=== PATIENT | female | born 1985 | race Caucasian/White ===

== ENCOUNTER 2022-09-10 12:42 | Emergency (ER) | payer SELFPAY ==
--- OUTSIDE RECORDS SUMMARY | 2022-09-10 12:45 | XMS REPORT | Continuity of Care Document ---
:1985 Author Organization [facility] t Address [address] [place] [id number] Care Team Providers Name Role Phone PCP, PATIENT DOES NOT HAVE A Primary Care Physician Unavaila ISABEL Mcallister Attending Clinician Unavailable ERIC HANSEN Attending Clinician Unavailable Eric Hansen MD Attending Clinician SABI RHODES Attending Clinician Unavailable Sabi Rhodes DO Attending Clinician ISABEL CEJA Admitting Clinician Unavailable Payers Payer Name Policy Type Policy Number Effective Date Expiration Date S sravani [id number] 2022 00:00:[address] [facility] [id number] 2022 [facility] 00:00:00 Problems Condition Condition Condition Status Onset Resolution Last Treating Co mments Source Name Details Category Date Date Treatment Clinician Date No known No known Disease Unive rs active active ity of problems problems [facility] Allergies, Adverse Reactions, Alerts Allergy Allergy Status Severity Reaction(s) Onset Inactive Treating Comm ents Source Name Type Date Date Clinician No Known DA Active [facility] s NO KNOWN Drug Active [facility] ALLERGIE Class ity of S [facility] Social History Social Habit Start Date Stop Date Quantity Comments Source Exposure to 2022-02-15 2022-02-25 Not sure [facility] SARS-CoV-2 (event) 00:00:00 07:57:00 Medica l Vahe Sex Assigned At [birth year] [facility] 00:00:00 00:00:00 Medical Branch Smoking Status Start Date Stop Date Source Tobacco smoking consumption [facility] Branch Medications Ordered Filled Start Stop Current Ordering Indication Dosage Frequency Signature Comments Components Source Medication Medication Date Date Medication? Clinician (SIG) Name Name NaCl 0.9% 2021-04 No 1000mL at 999 Uni vers (NS) bolus 04-27 mL/hr, ity of infusion 10:30: 11:34 1,000 mL, Freddy as 1,000 mL 00 :00 IV Medical Infusion, Branch ONCE, 1 dose, On 02/25/22 at 0430, LIANG ondansetron 2021-04 No 4mg 4 mg, Slow Univers (ZOFRAN 04-27 IV Push, ity of (PF)) 09:45: 09:46 ONCE, 1 [place] injection 4 00 :00 dose, On Medi dean mg [place] 02/25/22 at 0345, LIANG No known 2021-04 No No known Unive rs medications 04-27 medication it y of 09:37: s [place] 21 Medical Branch No known 2021-04 No No known Unive rs medications 04-27 medication it y of 03:13: s [place] 35 [facility] Vital Signs Vital Name Observation Time Observation Value Comments Source Height 2022-05-31 17:40:00 162.56 CM Weight 2022-05-31 17:40:00 63.5 KG Systolic blood 2022-02-25 14:01:00 155 mm[Hg] Univer sity of pressure [facility] Diastolic blood 2022-02-25 14:01:00 99 mm[Hg] Unive rsity of pressure [facility] Heart rate 2022-02-25 14:01:00 87 /min [facility] Body temperature 2022-02-25 14:01:00 36.5 [facility] Respiratory rate 2022-02-25 14:01:00 18 /min [facility] Body weight 2022-02-25 14:01:00 61.236 kg [facility] BMI 2022-02-25 14:01:00 23.17 kg/m2 [facility] Oxygen saturation in 2022-02-25 14:01:00 100 /min [facility] Arterial blood by [place] [facility] Pulse oximetry Branch Systolic blood 2022-02-25 11:00:00 123 mm[Hg] Univer sity of pressure [facility] Diastolic blood 2022-02-25 11:00:00 90 mm[Hg] [facility] Heart rate 2022-02-25 11:00:00 71 /min [facility] Respiratory rate 2022-02-25 11:00:00 16 /min [facility] Oxygen saturation in 2022-02-25 11:00:00 98 /min [facility] Arterial blood by [facility] Pulse oximetry [place] Body height 2022-02-25 09:23:00 162.6 cm [facility] Body weight 2022-02-25 09:23:00 61.236 kg [facility] BMI 2022-02-25 09:23:00 23.17 kg/m2 [facility] Body temperature 2022-02-25 09:04:00 37.06 Veronica [facility] Procedures Procedure Date / Time Performing Clinician Source Performed POCT TEST 2022-02-25 09:46:00 Sabi Rhodes [facility] MAGNESIUM 2022-02-25 09:33:00 Sabi Rhodes [facility] COMP. METABOLIC PANEL 2022-02-25 09:33:00 [id number] ETHANOL 2022-02-25 09:33:00 Sabi Rhodes [facility] CBC WITH DIFF 2022-02-25 09:33:00 Sabi Rhodes [facility] URINALYSIS 2022-02-25 09:33:00 Sabi Rhodes [facility] URINE DRUG (IMMUNOASSAY) 2022-02-25 09:33:00 Sabi Rhodes [facility] DRUG Medical [facility] SCREEN W/O REFLEX Encounters Start End Encounter Admission Attending Care Care Encounter Source Date/Time Date/Time Type Type Clinicians Facility Department ID 2022-05-31 2022-05-31 Outpatient E [facility], [facility] [id number] [address] 17:37:00 19:40:00 ISABEL [facility] 2022-02-25 2022-02-25 Emergency X TYRONE, [facility] ERT [id number] Univers 07:55:00 10:01:00 ERIC lima [facility] 2022-02-25 2022-02-25 Emergency Tyrone, [facility] [id number] Univers 07:55:00 10:01:00 Eric MAYA [id number] [facility] [id number] [facility] [id number] [address] 2022-02-25 2022-02-25 Emergency X [facility] ERT [id number] Univers 03:08:00 05:34:00 SABI lima [facility] 2022-02-25 2022-02-25 Emergency [facility] [id number] Univers 03:08:00 05:34:00 Sabi MAYA [id number] [facility] [id number] [facility] [id number] [address] Results Test Description Test Time Test Comments Results Result Comments Source URINALYSIS W/O MICROSCOPICOW 2022-05-31 19:17:00 Test Item Value Reference Range Interpretation Comme nts COLOR (test code = COLU) Brown YELLOW A CLARITY (test code = CLA) Cloudy CLEAR GLUCOSE UR (test code = UA Negative NEGATIVE GLUCOSE) BILI UR (test code = BILE) Negative NEGATIVE KETONES UR (test code = SHARA) 1+ NEGATIVE A SP GRAVITY (test code = SPGR) >=1.030 1.005-1.030 PH UR (test code = PH) 6.0 4.5-8.0 PROTEIN UR (test code = PU) 1+ NEGATIVE A NITRITE UR (test code = NITRITE) Negative NEGATIVE UROBIL UR (test code = GUROQ) 0.2 E.U./dL UROBIL UR (test code = GUROQC) UROBILINOGEN REFERENCE RANGE 0.2 - 1.0 EU/dL BLOOD UR (test code = UA BLOOD) 3+ NEGATIVE A LEUK ES UR (test code = LEUK) Negative NEGATIVE DRUGS OF ABUSE*OW*2022-05-31 19:08:00URINE DRUG SCREEN This is an unconfirmed screening result and should not be used for non-medical purposes GENERAL CHEMISTRY 13 *OW* [id number] 18:01:00 Test Item Value Reference Range Interpretation Comments GLUCOSE (test code = GGUL) 88 mg/dL 73-118 BUN (test code = GBUN) 8 mg/dL 7-22 CREATININE (test code = GCRE) 0.7 mg/dL 0.6-1.2 URIC ACID (test code = GUA) 3.4 mg/dL 2.2-6.6 CALCIUM (test code = GCL+) 8.6 mg/dL 8.0-10.3 ALBUMIN (test code = GALB) 3.3 g/dL 3.5-5.5 L PROTEIN (test code = GTP) 6.1 g/dL 6.4-8.1 L ALT (test code = GALT) 14 U/L 10-47 AST (test code = JOVANNI) 26 U/L 11-38 ALK PHOS (test code = GALP) 58 U/L 42-141 BILI TOTAL (test code = GTBIL) 0.6 mg/dL 0.2-1.6 GGT (test code = GGGT) 20 U/L 5-65 AMYLASE (test code = GAMY) 14 U/L 14-97 CBC (INCLUDES AUTOMATED DIFFERENTIAL) *2022-05-31 17:59:00 Test Item Value Reference Range Interpretation Comments WBC (test code = WBC) 6.2 10\\S\\3/uL 4.5-11.0 RBC (test code = RBC) 4.28 10\\S\\6/uL 4.30-5.70 L HGB (test code = HBG) 13.0 g/dL 12.0-15.5 HCT (test code = HCT) 39.9 % 35.0-44.0 MCV (test code = MCV) 93.3 fL 81.0-99.0 MCH (test code = MCH) 30.4 pg 27.0-31.0 MCHC (test code = MCHC) 32.6 g/dL 32.0-36.0 RDW (test code = RDW) 11.4 % 11.5-14.5 L PLT (test code = PLT) 248 10\\S\\3/uL 130-400 MPV (test code = OMPV) 7.4 fL 6.2-10.2 NEUTROP # (test code = NE#) 4.3 10\\S\\3/uL 1.6-8.0 LYMPH # (test code = LY#) 1.4 10\\S\\3/uL 1.1-3.5 MID # (test code = GMID#) 0.5 10\\S\\3/uL 0.0-1.1 GRAN % (test code = GRA%) 69.2 % 35.0-73.0 LYMPH % (test code = GLY%) 22.9 % 20.0-55.0 MID % (test code = GMID%) 7.9 % 0.0-10.0 [id number] 10:35:01ALCOHOL<10mg/dL02/25/2022 4:35 AM [facility]10 Yilvykzw78-275 Toxic>100 Depression of ADOPTION COORDINATOR>400 Fatalities ReportedUnVal[facility] HarlingenCOMP. METABOLIC PANEL ([id number])2022-02-25 10:34:56 Test Item Value Reference Range Interpretation Comments NA (test code = 138 mmol/L 135-145 4590021854) K (test code = 3.6 mmol/L 3.5-5.0 5818643695) CL (test code = 102 mmol/L 98-108 0313851540) CO2 TOTAL (test code = 27 mmol/L 23-31 1490565404) AGAP (test code = 2-16 8275203739) BUN (test code = 14 mg/dL 7-23 9098114426) GLUCOSE (test code = 89 mg/dL 70-110 1176608119) CREATININE (test code = 0.73 mg/dL 0.50-1.04 2877725308) TOTAL BILI (test code = 0.1-1.1 L 4825911389) CALCIUM (test code = 9.2 mg/dL 8.6-10.6 6686196632) T PROTEIN (test code = 6.9 g/dL 6.3-8.2 3776605649) ALBUMIN (test code = 4.5 g/dL 3.5-5.0 2788651238) ALK PHOS (test code = 64 U/L 34-122 7394101221) ALTv (test code = 14 U/L 5-35 2-6) AST(SGOT) (test code = 18 U/L 13-40 9908682269) eGFR (test code = mL/min/1.73m2 8946800296) SAMANTHA (test code = SAMANTHA) Association of Glomerular Filtration Rate (GFR) and Staging of Kidney Disease* + --+ --+ ------+| GFR (mL/min/1.73 m2) ?| With Kidney Damage ?| ?Without Kidney Damage+ --------+ --------+ +| ?>90 ?| ?Stage one ?| ? Normal ?+ ---+ ---+ -------+| ?60-89 ?| ?Stage two ?| ? Decreased GFR ? + --+ --+ ------+| ?30-59 ?| ?Stage three ?| ? Stage three ? + --+ --+ ------+| ?15-29 ?| ?Stage four ? | ? Stage four ?+ ---+ ---+ -------+| ?<15 (or dialysis) ? ?| ?Stage five ? | ? Stage five ?+ ---+ ---+ -------+ *Each stage assumes the associated GFR level has been in effect for at least three months. ?Stages 1 to 5, with or without kidney disease, indicate chronic kidney disease. Notes: Determination of stages one and two (with eGFR >59mL/min/1.73 m2) requires estimation of kidney damage for at least three months as defined by structural or functional abnormalities of the kidney, manifested by either:Pathological abnormalities or Markers of kidney damage (including abnormalities in the composition of the blood or urine or abnormalities in imaging tests). Lab Interpretation Abnormal (test code = 41664-3) [facility] 10:28:19 Test Item Value Reference Range Interpretation Comments MAGNESIUM (test code = 4380534818) 2.1 mg/dL 1.7-2.4 Lab Interpretation (test code = Normal 97549-4) [facility]uda[facility] WITH [id number] 10:05:43 Test Item Value Reference Range Interpretation Comments WBC (test code = See_Comment [Automated 6690-2) message] The sy stem which generated this result transmitted reference range : 4.30 - 11.10 10*3/?L. The reference range was not used to interpret this result as normal/abnormal . RBC (test code = See_Comment [Automated 789-8) message] The sy stem which generated this result transmitted reference range : 3.93 - 5.25 10*6/?L. The reference range was not used to interpret this result as normal/abnormal . HGB (test code = 13.9 g/dL 11.6-15.0 718-7) HCT (test code = 40.8 % 35.7-45.2 4544-3) MCV (test code = 85.9 fL 80.6-95.5 787-2) MCH (test code = 29.3 pg 25.9-32.8 785-6) MCHC (test code = 34.1 g/dL 31.6-35.1 786-4) RDW-SD (test code = 37.6 fL 39.0-49.9 L 19506-4) RDW-CV (test code = 11.9 % 12.0-15.5 L 788-0) PLT (test code = See_Comment [Automated 777-3) message] The sy stem which generated this result transmitted reference range : 166 - 358 10*3/ ?L. The reference r corey was not used to interpret this result as normal/abnormal . MPV (test code = 9.8 fL 9.5-12.9 14217-9) NRBC/100 WBC (test See_Comment [Automat ed code = 9382161636) message] The system which generated this result transmitted reference range : 0.0 - 10.0 /100 WBCs. The refer ence range was not u sed to interpret th is result as normal/abnormal . NRBC x10^3 (test code See_Comment [Auto mated = 9440110579) message] The s ystem which generated this result transmitted reference range : 10*3/?L. The reference range was not used to interpret this result as normal/abnormal . GRAN MAT (NEUT) % 58.6 % (test code = 770-8) IMM GRAN % (test code 0.40 % = 5189640006) LYMPH % (test code = 30.8 % 736-9) MONO % (test code = 8.2 % 5905-5) EOS % (test code = 1.3 % 713-8) BASO % (test code = 0.7 % 706-2) GRAN MAT x10^3(ANC) 4.46 10*3/uL 1.88-7.09 (test code = 7084745883) IMM GRAN x10^3 (test 0.03 10*3/uL 0.00-0.06 code = 2183007605) LYMPH x10^3 (test code 2.34 10*3/uL 1.32-3.29 = 731-0) MONO x10^3 (test code 0.62 10*3/uL 0.33-0.92 = 742-7) EOS x10^3 (test code = 0.10 10*3/uL 0.03-0.39 711-2) BASO x10^3 (test code 0.05 10*3/uL 0.01-0.07 = 704-7) Lab Interpretation Abnormal (test code = 93503-2) [facility]udaPO[facility] [id number] 09:46:00 Test Item Value Reference Range Interpretation Comments POCT PREG (test code = 1605) negative Lab Interpretation (test code = Normal 72652-9) [facility]"
[2022-09-10 13:15] LABS: Specific Gravity 1.024 (1.005-1.030)
--- NOTE | 2022-09-10 13:29 | RAD REPORT ---
EXAM DESCRIPTION: CT - Head C Spine Mpr Wo Con - 09/10/2022 1:12 pm CLINICAL HISTORY: Head and neck injury status post fall. Head and neck pain COMPARISON: 2014 TECHNIQUE: Computed axial tomography of the head and cervical spine was obtained. Sagittal and coronal reconstruction was performed. All CT scans are performed using dose optimization technique as appropriate and may include automated exposure control or mA/KV adjustment according to patient size. FINDINGS: An intracranial bleed is not seen. The ventricles are normal in caliber. No significant hypodensity within the brain. An extra-axial fluid collection is not noted. Fluid within the visualized sinuses and mastoids is not seen A cervical fracture is not visualized. No dislocation is noted. IMPRESSION: No acute intracranial abnormality is seen. A cervical fracture is not visualized. If the patient continues to have symptoms to suggest intracranial /spinal cord pathology then MRI wou ld be recommended
[2022-09-10] MEDS ORDERED: ONDANSETRON 4 MG (ODT) TAB ONE (14:08)
--- NOTE | 2022-09-10 14:08 | EDPHYS ---
Physician Documentation [facility] Name: Timothy Hayward Age: 36 yrs Sex: Female : 1985 Arrival Date: 09/10/2022 Time: 12:42 Bed 23 Private MD: ED Physician Dany Bustillos HPI: 09/10 13:06 This 36 yrs old Female presents to ER via [employer] with complaints of Nausea, ms3 Medical Clearance. 13:06 36-year-old female with past medical history of asthma and PTSD presents via [facility] ms3 for nausea and headache that began yesterday after hitting her head on a copy cutter car. Patient states she did have loss of consciousness at that time. Patient states her head pain is a 5/10 described as throbbing. Patient denies alleviating or inciting factors. Historical: - Allergies: 12:51 Morphine; ss - Home Meds: 12:51 suboxone [Active]; ss - PMHx: 12:51 Asthma; PTSD; ss - PSHx: 12:51 None; ss - Immunization history:: Client reports having NOT received the Covid vaccine. - Social history:: Smoking status: Patient reports the use of cigarette tobacco products, denies chronic smoking, but will smoke occasionally, Patient uses street drugs, marijuana. ROS: 13:06 Constitutional: Negative for fever, and chills. Neck: Negative for injury, pain, and ms3 swelling, Cardiovascular: Negative for chest pain, and palpitations. Respiratory: Negative for shortness of breath, cough, wheezing, and pleuritic chest pain, Abdomen/GI: Negative for abdominal pain, nausea, vomiting, diarrhea, and constipation, MS/Extremity: Negative for injury and deformity, Skin: Negative for injury, rash, and discoloration. 13:06 Neuro: Positive for headache. 13:06 All other systems are negative. Exam: 13:06 Constitutional: This is a well developed, well nourished patient who is awake, alert, ms3 and in no acute distress. Head/Face: Normocephalic, atraumatic. Neck: Trachea midline, no cervical lymphadenopathy. Supple, full range of motion without nuchal rigidity, or vertebral point tenderness. No Meningismus. Chest/axilla: Normal chest wall appearance and motion. Nontender with no deformity. Cardiovascular: Regular rate and rhythm with a normal S1 and S2. No gallops, murmurs, or rubs. Normal PMI, no JVD. No pulse deficits. Respiratory: Lungs have equal breath sounds bilaterally, clear to auscultation and percussion. No rales, rhonchi or wheezes noted. No increased work of breathing, no retractions or nasal flaring. Abdomen/GI: Soft, non-tender, with normal bowel sounds. No distension or tympany. No guarding or rebound. No evidence of tenderness throughout. Skin: Warm, dry with normal turgor. Normal color with no rashes, no lesions, and no evidence of cellulitis. MS/ Extremity: Pulses equal, no cyanosis. Neurovascular intact. Full, normal range of motion. Neuro: Awake and alert, GCS 15, oriented to person, place, time, and situation. Cranial nerves II-XII grossly intact. Motor strength 5/5 in all extremities. Sensory grossly intact. Cerebellar exam normal. Normal gait. Vital Signs: 12:49 BP 101 / 88; Pulse 88; Resp 15; Temp 98.8(O); Pulse Ox 98% on R/A; Weight 63.5 kg; ss Height 5 ft. 4 in. ; Pain 4/10; 12:49 Body Mass Index 24.03 (63.50 kg, 162.56 cm) ss 12:49 Pain Scale: Adult ss MDM: 12:55 Patient medically screened. ms3 13:06 Differential diagnosis: ICH vs Head Injury vs . ms3 14:09 Data reviewed: vital signs, nurses notes, and as a result, I will discharge patient. I ms3 considered the following discharge prescriptions or medication management in the emergency department Medications were administered in the Emergency Department. See MAR. Care significantly affected by the following Social Determinants of Health: Poor access to healthcare and/or lack of insurance. Counseling: I had a detailed discussion with the patient and/or guardian regarding: the historical points, exam findings, and any diagnostic results supporting the discharge/admit diagnosis, lab results, radiology results, the need for outpatient follow up, to return to the emergency department if symptoms worsen or persist or if there are any questions or concerns that arise at home. 09/10 12:56 Order name: Test, Urine; Complete Time: 13:17 ms3 09/10 12:56 Order name: CT Head C Spine; Complete Time: 13:40 ms3 Administered Medications: 14:01 Drug: Ondansetron PO 4 mg Route: PO; mb9 Disposition Summary: 09/10/22 14:07 Discharge Ordered Location: Home ms3 Condition: Stable ms3 Diagnosis - Headache ms3 - Nausea ms3 Followup: ms3 - With: Dino Voss DO - When: 2 - 3 days - Reason: Recheck today's complaints Discharge Instructions: - Discharge Summary Sheet ms3 - General Headache Without Cause ms3 - Nausea, Adult ms3 Forms: - Medication Reconciliation Form ms3 - Thank You Letter ms3 - Antibiotic Education ms3 - Prescription Opioid Use ms3 Prescriptions: - ondansetron 4 mg Oral Tablet,disintegrating - take 1 tablet by ORAL route every 8 hours for 4 days; 12 tablet; Refills: 0, ms3 Product Selection Permitted Signatures: Dispatcher [employer] Florinda Rice RN RN ss Sims, Marcus, DO DO ms3 Jen Oconnor RN RN mb9
--- NOTE | 2022-09-10 14:08 | ER ---
Nurse's Notes [facility] Name: Timothy Hayward Age: 36 yrs Sex: Female : 1985 Arrival Date: 09/10/2022 Time: 12:42 Bed 23 Private MD: Diagnosis: Headache;Nausea Presentation: 09/10 12:49 Chief complaint: Patient states: nausea since yesterday. In PD custody. PD requesting medical clearance. Coronavirus screen: Client denies travel out of the [place] in the last 14 days. Ebola Screen: Patient denies exposure to infectious person. Patient denies travel to an Ebola-affected area in the 21 days before illness onset. Initial Sepsis Screen: Does the patient meet any 2 criteria? No. Patient's initial sepsis screen is negative. Does the patient have a suspected source of infection? No. Patient's initial sepsis screen is negative. Risk Assessment: Do you want to hurt yourself or someone else? Patient reports no desire to harm self or others. Onset of symptoms was September 09, 2022. 12:49 [facility] 12[facility] Acuity: RADHA 3 ss Historical: - Allergies: 12:51 Morphine; ss - Home Meds: 12:51 suboxone [Active]; ss - PMHx: 12:51 Asthma; PTSD; ss - PSHx: 12:51 None; ss - Immunization history:: Client reports having NOT received the Covid vaccine. - Social history:: Smoking status: Patient reports the use of cigarette tobacco products, denies chronic smoking, but will smoke occasionally, Patient uses street drugs, marijuana. Screenin:52 [facility] ED Fall Risk Assessment (Adult) History of falling in the last 3 months, ss including since admission Yes- single mechanical fall (1 pt). Abuse screen: Denies threats or abuse. Denies injuries from another. Nutritional screening: No deficits noted. Tuberculosis screening: Never had TB. Assessment: 12:52 General: Appears uncomfortable, slender, Behavior is cooperative. Pain: Complains of ss pain in left cheek Pain currently is 4 out of 10 on a pain scale. Quality of pain is described as Pt reports she fractured her orbital socket 3 weeks ago. Neuro: Level of Consciousness is awake, alert, obeys commands, Oriented to person, place, time, situation. Respiratory: Airway is patent Respiratory effort is even, unlabored, Respiratory pattern is regular, symmetrical. GI: Abdomen is non-distended, Reports nausea, since yesterday. Derm: Skin is intact, is healthy with good turgor, Skin is pink, warm \T\ dry. normal. Vital Signs: 12:49 BP 101 / 88; Pulse 88; Resp 15; Temp 98.8(O); Pulse Ox 98% on R/A; Weight 63.5 kg; ss Height 5 ft. 4 in. ; Pain 4/10; 12:49 Body Mass Index 24.03 (63.50 kg, 162.56 cm) ss 12:49 Pain Scale: Adult ss ED Course: 12:46 Patient arrived in ED. bd 12:50 Dany Bustillos DO is Attending Physician. ms3 12:51 Triage completed. ss 12:51 Arm band placed on right wrist. ss 12:52 Patient has correct armband on for positive identification. Pt remains in forensic ss cuffs placed by PD prior to arrival. [employer] officer remains at bedside. 13:14 CT Head C Spine In Process Unspecified. EDMS 14:01 No provider procedures requiring assistance completed. Patient did not have IV access mb9 during this emergency room visit. 14:07 Dino Voss DO is Referral Physician. ms3 14:28 Florinda Culp, JAYLA is Primary Nurse. ss Administered Medications: 14:01 Drug: Ondansetron PO 4 mg Route: PO; mb9 Medication: 12:52 VIS not applicable for this client. Outcome: 14:07 Discharge ordered by MD. ms3 14:30 Discharged to Law Enforcement 14:30 Condition: good 14:30 Discharge instructions given to patient, police, Instructed on discharge instructions, follow up and referral plans. medication usage, Demonstrated understanding of instructions, follow-up care, medications, Prescriptions given X 1. 14:39 Patient left the ED. mb9 Signatures: Dispatcher [employer] EDMS Tayla Minor Shelby, RN RN ss Dany Bustillos DO DO ms3 Jen Oconnor RN RN mb9
[2022-09-10 14:54] VITALS: BP 101/88; TEMP 98.8; O2SAT 98
== END 2022-09-10 14:39 | disposition home or self-care (01) ==
LOC: ER 12:42
DX: R51.9 Headache, unspecified (principal); R11.0 Nausea
CPT/HCPCS: 70450; 72125; 81025; 99283; Q0162

== ENCOUNTER 2024-01-18 10:53 | Emergency (ER) | payer SELFPAY ==
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
[2024-01-18 11:38] LABS: Absolute Eosinophils 0.1 K/uL (0-0.5); Absolute Lymphocytes (CBC) 1.3 K/uL (0.7-4.9); Absolute Monocytes 0.4 K/uL (0.1-1.3); Basophils % 0.3 % (0-1.3); Eosinophils % 0.8 % (0-4.4); Hematocrit 39.4 % (36.0-45.0); Hemoglobin 13.2 g/dL (12.0-15.0); Lymphocytes % 19.2 % (15.3-44.8); MCHC 33.6 g/dL (32.0-36.0); MCV 89.4 fL (80-100); Monocytes % 5.7 % (3.3-12.3); Platelets 241 thou/uL (152-406); RBC Red Blood Cell Count 4.41 M/uL (3.86-4.86); Red Cell Distribution Width 12.8 % (12.1-15.2)
[2024-01-18] MEDS ORDERED: NA CHLORIDE 0.9% 1,000 ML ONE (11:39)
[2024-01-18] MEDS ORDERED: FOLIC ACID 5 MG/ML VIAL ONE (11:39)
[2024-01-18 11:43] LABS: PT Prothrombin Time 11.5 SECONDS (9.4-12.5); Protime INR 1.03
[2024-01-18 11:57] LABS: ALT/SGPT 18 U/L (13-56); AST/SGOT 15 U/L (15-37); Albumin/Globulin Ratio 1.2 (1.1-1.8); Alkaline Phosphatase 59 U/L (45-117); Anion Gap 6.7 mEq/L (5.0-15.0); BUN Blood Urea Nitrogen 6 mg/dL (7-18); Bicarbonate 26 mEq/L (21-32); Bilirubin Total 0.5 mg/dL (0.2-1.0); Globulin 3.3 g/dL (2.3-3.5); Glomerular Filtration Rate 115 ml/min (=/>90); Glucose Level 82 mg/dL (74-106); Magnesium 2.4 mg/dL (1.6-2.4); NT PRO-BNP 47 pg/mL (<125); Potassium 3.7 mEq/L (3.5-5.1); Protein, Total 7.3 g/dL (6.4-8.2); Sodium Level 135 mEq/L (136-145)
[2024-01-18 11:58] LABS: Bilirubin Direct < 0.2 mg/dL (0-0.2); Bilirubin Indirect, Calculated 0.3 mg/dL (0.2-0.8); C-Reactive Protein < 2.90 mg/L (<3.00); Troponin High Sensitivity < 3.0 pg/mL (<58.9)
--- NOTE | 2024-01-18 12:01 | RAD REPORT ---
Procedure: Chest Single View HISTORY: Cough COMPARISON: 2008 FINDINGS: The lungs appear clear of acute infiltrate. No significant pleural effusion noted. The heart is normal size. IMPRESSION: No acute abnormality is displayed.
[2024-01-18 12:06] LABS: Specific Gravity 1.027 (1.005-1.030); Sqamous Epithelial <5 /HPF (None Seen); Urine Bacteria None Seen /HPF (<20); Urine Bilirubin NEGATIVE (Negative); Urine Blood Negative (Negative); Urine Clarity Turbid (Clear); Urine Color Yellow (Yellow); Urine Culture Reflex Order NOT NEEDED; Urine Glucose NEGATIVE (Negative); Urine Ketones 1+ (Negative); Urine Microscopic Reflex YN ORDER UMIC; Urine Mucus 3+ /HPF (None Seen); Urine Nitrite NEGATIVE (Negative); Urine Protein TRACE (Negative); Urine RBC <5 /HPF (None Seen); Urine Urobilinogen Normal (Normal); Urine WBC <5 /HPF (<5); Urine pH 5.5 (5.0-7.0)
[2024-01-18 12:18] LABS: Barbiturates NEGATIVE (NEGATIVE); Benzodiazepines NEGATIVE (NEGATIVE); Cocaine NEGATIVE (NEGATIVE); METHAMPHETAM POSITIVE (NEGATIVE); Methadone NEGATIVE (NEGATIVE); Opiates POSITIVE (NEGATIVE); Phencyclidine NEGATIVE (NEGATIVE); THC Cannibis POSITIVE (NEGATIVE)
[2024-01-18] MEDS ORDERED: METHYLPREDNISOLONE 125 MG INJ ONE (12:23)
[2024-01-18] MEDS ORDERED: FAMOTIDINE 20 MG/2 ML VIAL IV ONE (12:24)
[2024-01-18] MEDS ORDERED: DIPHENHYDRAMINE 50 MG/ML VIAL ONE (12:24)
--- NOTE | 2024-01-18 12:26 | RAD REPORT ---
EXAM: CT brain without contrast HISTORY: TIA COMPARISON: 2014 TECHNIQUE: Multiple contiguous axial images were obtained and a CT of the brain without contrast.. Sagittal and coronal reconstruction performed. Automated exposure control, adjustment of the mA and/or kV according to patient size, and/or iterative reconstruction. Unless otherwise specified, incidental f indings do not require dedicated imaging follow-u FINDINGS: An intracranial bleed is not seen Ventricles are normal caliber No extra-axial fluid collection noted No significant hypodensity within the brain. Mild cerebellar tonsillar ectopia No fluid within the visualized sinuses or mastoids noted. Mucous retention cyst right maxillary sinus IMPRESSION: No acute intracranial abnormality noted. If the patient's symptoms persist MRI of the brain would be recommended.
[2024-01-18] MEDS ORDERED: droPERidol 5 MG/2 ML VIAL ONE (13:06)
--- NOTE | 2024-01-18 13:16 | RAD REPORT ---
EXAMINATION: CTA HEAD CLINICAL INDICATION: TIA TECHNIQUE: Axial CT images were obtained through the head after 100 cc Isovue-370 intravenous contras t utilizing angiographic protocol with 3D post-processing (maximum intensity projection images, volume rendered images and/or shaded surface rendered images). One or more of the following dose red uction techniques were used: Automated exposure control, adjustment of the mA and/or kV according to patient size, and/or iterative reconstruction. Unless otherwise specified, incidental findings do not require dedicated imaging follow-up. COMPARISON: None FINDINGS: Distal internal carotid, basilar, anterior cerebral, middle cerebral and posterior cerebral arteries do not demonstrate a significant stenosis An aneurysm not noted. No large vessel occlusion IMPRESSION: No acute vascular abnormality displayed
--- NOTE | 2024-01-18 13:16 | RAD REPORT ---
EXAMINATION: Neck Angio CLINICAL INDICATION: TIA TECHNIQUE: Axial CT images were obtained from the aortic arch to the skull base after intravenous adm inistration of 100 cc Isovue-370 utilizing angiographic protocol. Multiplanar reformats, as well as 3D post-processing (maximum intensity projection images, volume rendered images and/or shaded surface rendered images) were generated and reviewed. One or more of the following dose reduction techniques were used: Automated exposure control, adjustment of the mA and/or kV according to patient size, and/or iterative reconstruction. Unless otherwise specified, incidental findings do not require dedicated imaging follow-up. COMPARISON: No prior exam. FINDINGS: The visualized aortic arch and great vessels do not demonstrate a significant abnormality Common carotid, internal carotid and external carotid arteries Vertebral arteries unremarkable No significant stenosis noted. A dissection is not seen. Methods for NASCET criteria: Mild stenosis, 0% to 49%; Moderate stenosis 50% to 69%; Severe stenosis, 70% to 99% IMPRESSION: No acute vascular abnormality displayed
[2024-01-18] MEDS ORDERED: NA CHLORIDE 0.9% 100 ML ONE (13:21)
[2024-01-18] MEDS ORDERED: ASPIRIN 81 MG CHEWABLE TABLET ONE (13:49)
--- NOTE | 2024-01-18 14:30 | ER ---
Nurse's Notes [facility] Name: Timothy Hayward Age: 38 yrs Sex: Female : 1985 Arrival Date: 01/18/2024 Time: 10:53 Bed 3 Private MD: Diagnosis: Abuse of other non-psychoactive substances;Adverse effect of amphetamines;Altered mental status, unspecified Presentation: 01/17 10:57 Chief complaint: EMS states: patient was holding a normal conversation with PD, when ap3 she was informed she was being arrested she started "talking funny". Patient is pointing at her tongue and gums, with a mumbled speech. Coronavirus screen: At this time, the client does not indicate any symptoms associated with coronavirus-19. Ebola Screen: No symptoms or risks identified at this time. Initial Sepsis Screen: Does the patient meet any 2 criteria? No. Patient's initial sepsis screen is negative. Does the patient have a suspected source of infection? No. Patient's initial sepsis screen is negative. Risk Assessment: Do you want to hurt yourself or someone else? Patient reports no desire to harm self or others. Onset of symptoms was January 18, 2024. 10:57 Method Of Arrival: EMS: [facility] ap3 10:57 Acuity: RADHA 3 ap3 Triage Assessment: 11:01 General: Appears comfortable, Behavior is restless. Pain: Unable to use pain scale. ap3 verbiage incomprehensible at this time. Neuro: Level of Consciousness is awake, alert, obeys commands. Cardiovascular: Patient's skin is warm and dry. Respiratory: Airway is patent Respiratory effort is even, unlabored, Respiratory pattern is regular, symmetrical. 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 - Infectious Disease History:: C. Auris, . - Social history:: Smoking status: unknown. Screenin:02 Abuse screen: Denies threats or abuse. Nutritional screening: No deficits noted. ap3 Tuberculosis screening: No symptoms or risk factors identified. 11:02 [facility] ED Fall Risk Assessment (Adult) History of falling in the last 3 months, ap3 including since admission Yes- physiologic fall (2 pts) Confusion or Disorientation Yes (5 pts) Intoxicated or Sedated Yes (3 pts) Impaired Gait Yes (1 pt) Mobility Assist Device Used No (0 pt) Altered Elimination No (0 pt) Score/Fall Risk Level 3 or more points = High Risk Oriented to surroundings, Maintained a safe environment, Educated pt \\T\\ family on fall prevention, incl call for assistance when getting out of bed, Assessed \\T\\ reinforced patient's understanding of fall precautions, Provided non-skid footwear, Hourly rounding (assess needs \\T\\ fall precautionary measures) done, Used ambulatory aids as needed (educated on \\T\\ assisted with), Used gait belt as appropriate Implemented a Fall Risk Plan of Care, Apply high fall risk patient identification: yellow non skid footwear/ fall signage, Remained w/in arm's length of patient and in sight while toileting, Offered frequent toileting (1:1 observation), Remained with patient while ambulating, Utilized family, sitter, or virtual starch treating assistant as indicated. Assessment: 13:44 Reassessment: Patient and/or family updated on plan of care and expected duration. Pain ap3 level reassessed. General: Appears in no apparent distress. 14:02 Reassessment: Patient and/or family updated on plan of care and expected duration. Pain ap3 level reassessed. Patient states symptoms have improved. Vital Signs: 10:57 BP 133 / 84; Pulse 73; Resp 12; Temp 98.2; Pulse Ox 100% on R/A; ap3 12:38 BP 146 / 85; Pulse 56; Resp 17; Pulse Ox 100% on R/A; ap3 13:19 BP 129 / 70; Pulse 69; Resp 19; Pulse Ox 100% ; ap3 13:43 BP 121 / 75; Pulse 82; Pulse Ox 100% on R/A; ap3 13:54 BP 117 / 75; Pulse 78; Pulse Ox 100% on R/A; ap3 Lenox Coma Score: 14:40 Eye Response: spontaneous(4). Motor Response: obeys commands(6). Verbal Response: ap3 oriented(5). Total: 15. NIH Stroke Scale Scores: 14:26 NIHSS Score: 0 raphael 14:40 NIHSS Score: 0 ap3 ED Course: 10:54 Patient arrived in ED. sb4 10:56 Temitope Richard, RN is Primary Nurse. ap3 11:00 Triage completed. ap3 11:02 Brant Myers MD is Attending Physician. raphael 11:02 Arm band placed on right wrist. ap3 11:02 Patient has correct armband on for positive identification. Provided Education on: need ap3 for monitoring. 11:20 XRAY Chest (1 view) In Process Unspecified. EDMS 11:28 Initial lab(s) drawn, by me, sent to lab. Inserted saline lock: 22 gauge in left ap3 antecubital area, using aseptic technique. Blood collected. Flushed with 10 mL NS. 11:59 Urinalysis w/ reflexes Sent. ap3 11:59 UDS Sent. ap3 12:00 EKG done, by ED staff, reviewed by Brant Myers MD. Straight cath inserted, using ap3 sterile technique, 16 Fr. Returned clear yellow urine. 12:14 CT Head Brain wo Cont In Process Unspecified. EDMS 13:02 CT Neck Angio In Process Unspecified. EDMS 13:02 Head angio In Process Unspecified. EDMS 14:45 No provider procedures requiring assistance completed. IV discontinued, intact, ap3 bleeding controlled, No redness/swelling at site. Pressure dressing applied. 18:48 Primary Nurse role handed off by Temitope Richard, JAYLA ap3 Administered Medications: 11:59 Drug: NS 0.9% IV 1000 ml IV at 1000 ml once; to be given as a bolus over 60 minutes ap3 Route: IV; Rate: 1000 ml; Site: left antecubital; 13:25 Follow up: IV Status: Completed infusion; IV Intake: 1000ml ap3 11:59 Drug: foLIC Acid IVPB 1 mg IVPB once Route: IVPB; Site: left antecubital; ap3 13:26 Follow up: IV Status: Completed infusion ap3 12:38 Drug: MethylPrednisoLONE IVP 125 mg IVP once Route: IVP; Site: left antecubital; ap3 13:26 Follow up: Response: No adverse reaction ap3 12:38 Drug: diphenhydrAMINE IVP 50 mg IVP once Route: IVP; Site: left antecubital; ap3 13:26 Follow up: Response: No adverse reaction ap3 12:38 Drug: Famotidine IVP 40 mg IVP once; dilute with 10 mL 0.9% NaCl; give over 2 minutes ap3 Route: IVP; Site: left antecubital; 13:26 Follow up: Response: No adverse reaction ap3 13:25 Drug: Droperidol IVP 1.25 mg IVP once Route: IVP; Site: left antecubital; ap3 14:46 Follow up: Response: No adverse reaction ap3 14:01 Drug: Aspirin PO Chewable Tablet 162 mg PO once Route: PO; ap3 14:45 Follow up: Response: No adverse reaction ap3 Medication: 14:45 VIS not applicable for this client. ap3 Intake: 13:25 IV: 1000ml; Total: 1000ml. ap3 Outcome: 14:29 Discharge ordered by . raphael 14:45 Discharged to Law Enforcement ap3 14:45 Condition: good 14:45 Discharge instructions given to patient, police, Instructed on discharge instructions, follow up and referral plans. medication usage, Demonstrated understanding of instructions, follow-up care, medications, Prescriptions given X 1, 14:46 Patient left the ED. ap3 18:48 Patient left the ED. ap3 NIH Stroke Scale - NIH Stroke Score Date: 01/18/2024 Time: 14:26 Total Score = 0 10. Dysarthria (speech clarity - read or repeat words) - 0(Normal) 11. Extinction and Inattention (visual/tactile/auditory/spatial/personal) - 0(No abnormality) 1a. Level of Consciousness (LOC) - 0(Alert) 1b. Level of Consciousness (LOC) (Month \\T\\ Age) - 0(Both) 1c. LOC Commands (Open \\T\\ Closes Eyes/Major Donor Coordinator) - 0(Both) 2. Best Gaze (Lateral Gaze Paresis) - 0(Normal) 3. Visual Field Loss - 0(No visual loss) 4. Facial Palsy - 0(Normal) 5a. Left Arm: Motor (10-second hold) - 0(No drift) 5b. Right Arm: Motor (10-second hold) - 0(No drift) 6a. Left Leg: Motor (5-second hold - always test supine) - 0(No drift) 6b. Right Leg: Motor (5-second hold - always test supine) - 0(No drift) 7. Limb Ataxia (finger/nose \\T\\ heel/gonzalez - test with eyes open) - 0(Absent) 8. Sensory Loss (pinprick arms/legs/face) - 0(Normal) 9. Best Language: Aphasia (description/naming/reading) - 0(No aphasia) Initials: raphael NIH Stroke Scale - NIH Stroke Score Date: 01/18/2024 Time: 14:40 Total Score = 0 10. Dysarthria (speech clarity - read or repeat words) - 0(Normal) 11. Extinction and Inattention (visual/tactile/auditory/spatial/personal) - 0(No abnormality) 1a. Level of Consciousness (LOC) - 0(Alert) 1b. Level of Consciousness (LOC) (Month \\T\\ Age) - 0(Both) 1c. LOC Commands (Open \\T\\ Closes Eyes/Major Donor Coordinator) - 0(Both) 2. Best Gaze (Lateral Gaze Paresis) - 0(Normal) 3. Visual Field Loss - 0(No visual loss) 4. Facial Palsy - 0(Normal) 5a. Left Arm: Motor (10-second hold) - 0(No drift) 5b. Right Arm: Motor (10-second hold) - 0(No drift) 6a. Left Leg: Motor (5-second hold - always test supine) - 0(No drift) 6b. Right Leg: Motor (5-second hold - always test supine) - 0(No drift) 7. Limb Ataxia (finger/nose \\T\\ heel/gonzalez - test with eyes open) - 0(Absent) 8. Sensory Loss (pinprick arms/legs/face) - 0(Normal) 9. Best Language: Aphasia (description/naming/reading) - 0(No aphasia) Initials: ap3 Signatures: Dispatcher [employer] Brant Potts MD MD cha Prokisch, Amanda, RN RN ap3 Caridad Barillas PATitoC PAHeath sb4
--- NOTE | 2024-01-18 14:30 | EDPHYS ---
Physician Documentation [facility] Name: Timothy Hayward Age: 38 yrs Sex: Female : 1985 Arrival Date: 01/18/2024 Time: 10:53 Bed 3 Private MD: ED Physician Brant Myers HPI: 01/17 14:25 This 38 yrs old Female presents to ER via EMS with complaints of ams, raphael difficulty talking [facility] 14:25 The patient presents with dysphasia. Onset: The symptoms/episode began/occurred just arphael prior to arrival. Possible causes: CVA or TIA, drug use, alcohol, head injury, low blood sugar, seizure, sepsis. Associated signs and symptoms: The patient has no apparent associated signs or symptoms. Current symptoms: In the emergency department the patient's symptoms are unchanged from the initial presentation. Patient's baseline: Neuro: alert and fully oriented. The patient has not experienced similar symptoms in the past. 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 - Infectious Disease History:: C. Auris, . - Social history:: Smoking status: unknown. ROS: 14:26 Constitutional: Negative for fever, chills, and weight loss, Eyes: Negative for injury, raphael pain, redness, and discharge, ENT: Negative for injury, pain, and discharge, Neck: Negative for injury, pain, and swelling, Cardiovascular: Negative for chest pain, palpitations, and edema, Respiratory: Negative for shortness of breath, cough, wheezing, and pleuritic chest pain, Abdomen/GI: Negative for abdominal pain, nausea, vomiting, diarrhea, and constipation, Back: Negative for injury and pain, : Negative for injury, bleeding, discharge, and swelling, MS/Extremity: Negative for injury and deformity, Skin: Negative for injury, rash, and discoloration, Psych: Negative for depression, anxiety, suicide ideation, homicidal ideation, and hallucinations, Allergy/Immunology: Negative for hives, rash, and allergies, Endocrine: Negative for neck swelling, polydipsia, polyuria, polyphagia, and marked weight changes, Hematologic/Lymphatic: Negative for swollen nodes, abnormal bleeding, and unusual bruising, 14:26 Neuro: Positive for altered mental status, weakness, of the right arm, left arm, right leg and left leg, Exam: 14:26 Constitutional: This is a well developed, well nourished patient who is awake, alert, raphael and in no acute distress. Head/Face: Normocephalic, atraumatic. Eyes: Pupils equal round and reactive to light, extra-ocular motions intact. Lids and lashes normal. Conjunctiva and sclera are non-icteric and not injected. Cornea within normal limits. Periorbital areas with no swelling, redness, or edema. ENT: Nares patent. No nasal discharge, no septal abnormalities noted. Tympanic membranes are normal and external auditory canals are clear. Oropharynx with no redness, swelling, or masses, exudates, or evidence of obstruction, uvula midline. Mucous membranes moist. Neck: Trachea midline, no thyromegaly or masses palpated, and no cervical lymphadenopathy. Supple, full range of motion without nuchal rigidity, or vertebral point tenderness. No Meningismus. Chest/axilla: Normal chest wall appearance and motion. Nontender with no deformity. No lesions are appreciated. Cardiovascular: Regular rate and rhythm with a normal S1 and S2. No gallops, murmurs, or rubs. Normal PMI, no JVD. No pulse deficits. Respiratory: Lungs have equal breath sounds bilaterally, clear to auscultation and percussion. No rales, rhonchi or wheezes noted. No increased work of breathing, no retractions or nasal flaring. Abdomen/GI: Soft, non-tender, with normal bowel sounds. No distension or tympany. No guarding or rebound. No evidence of tenderness throughout. Back: No spinal tenderness. No costovertebral tenderness. Full range of motion. Skin: Warm, dry with normal turgor. Normal color with no rashes, no lesions, and no evidence of cellulitis. MS/ Extremity: Pulses equal, no cyanosis. Neurovascular intact. Full, normal range of motion. Neuro: Awake and alert, GCS 15, oriented to person, place, time, and situation. Cranial nerves II-XII grossly intact. Motor strength 5/5 in all extremities. Sensory grossly intact. Cerebellar exam normal. Normal gait. Psych: Awake, alert, with orientation to person, place and time. Behavior, mood, and affect are within normal limits. 14:26 ECG was reviewed by the Attending Physician. 14:26 Neuro: Orientation: is normal, appropriate for stated age, no acute changes, Mentation: is normal, appropriate for stated age, no acute changes, Memory: is normal, appropriate for stated age, no acute changes, Cranial nerves: grossly normal, is grossly normal based on the patient's age, no acute changes, Motor: is normal, Sensation: is normal, no obvious gross deficits, appropriate Gait: not tested. Babinski testing is normal, seizure activity, is not displayed by the patient, Vital Signs: 10:57 BP 133 / 84; Pulse 73; Resp 12; Temp 98.2; Pulse Ox 100% on R/A; ap3 12:38 BP 146 / 85; Pulse 56; Resp 17; Pulse Ox 100% on R/A; ap3 13:19 BP 129 / 70; Pulse 69; Resp 19; Pulse Ox 100% ; ap3 13:43 BP 121 / 75; Pulse 82; Pulse Ox 100% on R/A; ap3 13:54 BP 117 / 75; Pulse 78; Pulse Ox 100% on R/A; ap3 NIH Stroke Scale Scores: 14:26 NIHSS Score: 0 raphael 14:40 NIHSS Score: 0 ap3 Chris Coma Score: 14:40 Eye Response: spontaneous(4). Motor Response: obeys commands(6). Verbal Response: ap3 oriented(5). Total: 15. MDM: 11:02 Medical Screening Exam initiated raphael 14:28 Differential Diagnosis: CVA, electrolyte abnormality, alcohol intoxication, raphael hypoglycemia, intracranial bleed, meningitis, overdose, pneumonia, seizure, sepsis, TIA, UTI, volume depletion. Data reviewed: vital signs, nurses notes, EMS record, lab test result(s), EKG, radiologic studies, CT scan, plain films. Consideration of Admission/Observation Escalation of care including admission/observation considered. I considered the following discharge prescriptions or medication management in the emergency department Medications were administered in the Emergency Department. See MAR. Independent interpretation of the following test(s) in the Emergency Department EKG: See my EKG interpretation above. Test considered but Not performed: MRI: no mri brain. Historians other than the Patient: EMS: ems well informed. Care significantly affected by the following chronic conditions: asthma, ptsd. Counseling: I had a detailed discussion with the patient and/or guardian regarding the historical points, exam findings, and any diagnostic results supporting the discharge/admit diagnosis, lab results, radiology results, the need for outpatient follow up, for definitive care, a family practitioner. 01/17 11:08 Order name: Basic Metabolic Panel; Complete Time: 12:17 01/17 11:08 Order name: CBC with Diff; Complete Time: 12:17 01/17 11:08 Order name: LFT's; Complete Time: 12:17 01/17 11:08 Order name: Magnesium; Complete Time: 12:17 01/17 11:08 Order name: NT PRO-BNP; Complete Time: 12:17 01/17 11:08 Order name: PT-INR; Complete Time: 12:17 01/17 11:08 Order name: Troponin HS; Complete Time: 12:17 01/17 11:08 Order name: CRP; Complete Time: 12:17 01/17 11:08 Order name: UDS; Complete Time: 12:43 raphael 01/17 11:08 Order name: Urinalysis w/ reflexes; Complete Time: 12:17 01/17 11:08 Order name: XRAY Chest (1 view); Complete Time: 12:17 01/17 11:08 Order name: CT Neck Angio; Complete Time: 14:23 raphael 01/17 11:08 Order name: CT Head Brain wo Cont; Complete Time: 12:43 raphael 01/17 11:16 Order name: Head angio; Complete Time: 14:23 EDMS 01/17 11:08 Order name: EKG; Complete Time: 11:08 01/17 11:08 Order name: Cardiac monitoring; Complete Time: 11:09 raphael 01/17 11:08 Order name: EKG - Nurse/Tech; Complete Time: 12:00 raphael 01/17 11:08 Order name: IV Saline Lock; Complete Time: 11:28 raphael 01/17 11:08 Order name: Labs collected and sent; Complete Time: 11:28 raphael 01/17 11:08 Order name: O2 Per Protocol; Complete Time: 11:09 01/17 11:08 Order name: O2 Sat Monitoring; Complete Time: 11:09 raphael EC:26 Rate is 73 beats/min. Rhythm is regular. QRS [place] is Normal. NH interval is normal. QRS raphael interval is normal. QT interval is normal. No Q waves. T waves are Normal. No ST changes noted. Clinical impression: Normal ECG and No evidence of ischemia. Interpreted by me. Reviewed by me. Administered Medications: 11:59 Drug: NS 0.9% IV 1000 ml IV at 1000 ml once; to be given as a bolus over 60 minutes ap3 Route: IV; Rate: 1000 ml; Site: left antecubital; 13:25 Follow up: IV Status: Completed infusion; IV Intake: 1000ml ap3 11:59 Drug: foLIC Acid IVPB 1 mg IVPB once Route: IVPB; Site: left antecubital; ap3 13:26 Follow up: IV Status: Completed infusion ap3 12:38 Drug: MethylPrednisoLONE IVP 125 mg IVP once Route: IVP; Site: left antecubital; ap3 13:26 Follow up: Response: No adverse reaction ap3 12:38 Drug: diphenhydrAMINE IVP 50 mg IVP once Route: IVP; Site: left antecubital; ap3 13:26 Follow up: Response: No adverse reaction ap3 12:38 Drug: Famotidine IVP 40 mg IVP once; dilute with 10 mL 0.9% NaCl; give over 2 minutes ap3 Route: IVP; Site: left antecubital; 13:26 Follow up: Response: No adverse reaction ap3 13:25 Drug: Droperidol IVP 1.25 mg IVP once Route: IVP; Site: left antecubital; ap3 14:46 Follow up: Response: No adverse reaction ap3 14:01 Drug: Aspirin PO Chewable Tablet 162 mg PO once Route: PO; ap3 14:45 Follow up: Response: No adverse reaction ap3 Disposition Summary: 01/18/24 14:29 Discharge Ordered Notes: Location: Home raphael Problem: new raphael Symptoms: have improved raphael Condition: Stable raphael Diagnosis - Abuse of other non-psychoactive substances raphael - Adverse effect of amphetamines raphael - Altered mental status, unspecified raphael Followup: raphael - With: Private Physician - When: 2 - 3 days - Reason: Recheck today's complaints, Continuance of care, Re-evaluation by your physician Discharge Instructions: - Discharge Summary Sheet raphael - Confusion raphael - Substance Use Disorder raphael - Methamphetamines Use Disorder raphael - Aspirin and Your Heart raphael - Substance Use Disorder and Mental Illness raphael - Illegal Drug Use Information, Adult [facility] Forms: - Medication Reconciliation Form raphael - Antibiotic Education raphael - Prescription Opioid Use [facility] - Patient Portal Instructions [facility] - Leadership Thank You Letter [facility] Prescriptions: - Folic Acid 1 mg Oral Tablet - take 1 tablet ORAL route once daily; 30 tablet; Refills: 0, Product Selection [facility] Permitted NIH Stroke Scale - NIH Stroke Score Date: 01/18/2024 Time: 14:26 Total Score = 0 10. Dysarthria (speech clarity - read or repeat words) - 0(Normal) 11. Extinction and Inattention (visual/tactile/auditory/spatial/personal) - 0(No abnormality) 1a. Level of Consciousness (LOC) - 0(Alert) 1b. Level of Consciousness (LOC) (Month \T\ Age) - 0(Both) 1c. LOC Commands (Open \T\ Closes Eyes/Supervisor [employer]) - 0(Both) 2. Best Gaze (Lateral Gaze Paresis) - 0(Normal) 3. Visual Field Loss - 0(No visual loss) 4. Facial Palsy - 0(Normal) 5a. Left Arm: Motor (10-second hold) - 0(No drift) 5b. Right Arm: Motor (10-second hold) - 0(No drift) 6a. Left Leg: Motor (5-second hold - always test supine) - 0(No drift) 6b. Right Leg: Motor (5-second hold - always test supine) - 0(No drift) 7. Limb Ataxia (finger/nose \T\ heel/gonzalez - test with eyes open) - 0(Absent) 8. Sensory Loss (pinprick arms/legs/face) - 0(Normal) 9. Best Language: Aphasia (description/naming/reading) - 0(No aphasia) Initials: [facility] NIH Stroke Scale - NIH Stroke Score Date: 01/18/2024 Time: 14:40 Total Score = 0 10. Dysarthria (speech clarity - read or repeat words) - 0(Normal) 11. Extinction and Inattention (visual/tactile/auditory/spatial/personal) - 0(No abnormality) 1a. Level of Consciousness (LOC) - 0(Alert) 1b. Level of Consciousness (LOC) (Month \T\ Age) - 0(Both) 1c. LOC Commands (Open \T\ Closes Eyes/Supervisor [employer] Operations) - 0(Both) 2. Best Gaze (Lateral Gaze Paresis) - 0(Normal) 3. Visual Field Loss - 0(No visual loss) 4. Facial Palsy - 0(Normal) 5a. Left Arm: Motor (10-second hold) - 0(No drift) 5b. Right Arm: Motor (10-second hold) - 0(No drift) 6a. Left Leg: Motor (5-second hold - always test supine) - 0(No drift) 6b. Right Leg: Motor (5-second hold - always test supine) - 0(No drift) 7. Limb Ataxia (finger/nose \T\ heel/gonzalez - test with eyes open) - 0(Absent) 8. Sensory Loss (pinprick arms/legs/face) - 0(Normal) 9. Best Language: Aphasia (description/naming/reading) - 0(No aphasia) Initials: ap3 Signatures: Dispatcher [employer] EDMS Brant Myers MD MD cha Prokisch, Amanda, RN RN ap3 Corrections: (The following items were deleted from the chart) 11:08 11:08 BASIC METABOLIC PANEL+C.LAB.BRZ ordered. EDMS EDMS 11:08 11:08 CBC+H.LAB.BRZ ordered. EDMS EDMS 11:08 11:08 HEPATIC FUNCTION+C.LAB.BRZ ordered. EDMS EDMS 11:08 11:08 MAGNESIUM+C.LAB.BRZ ordered. EDMS EDMS 11:08 11:08 PROBNP+C.LAB.BRZ ordered. EDMS EDMS 11:08 11:08 PROTIME (+INR)+COAG.LAB.BRZ ordered. EDMS EDMS 11:08 11:08 Troponin High Sensitivity+C.LAB.BRZ ordered. EDMS EDMS 11:08 11:08 C-REACTIVE PROTEIN+C.LAB.BRZ ordered. EDMS EDMS 11:08 11:08 URINE DRUG SCREEN+UC.LAB.BRZ ordered. EDMS EDMS 11:08 11:08 Urinalysis+U.LAB.BRZ ordered. EDMS EDMS
[2024-01-18 17:43] VITALS: TEMP 98.2; O2SAT 100
[2024-01-18 17:48] VITALS: BP 117/75
--- NOTE | 2024-01-21 13:00 | EKG ---
Test Date: 2024-01-18 Test Time: 11:46:24 Attorney General: ALP MEASUREMENT RESULTS: Intervals: Rate: 73 AK: 146 QRSD: 70 QT: 394 QTc: 434 Grawn: P: 85 AK: 146 QRS: 70 T: 68 INTERPRETIVE STATEMENTS: Normal sinus rhythm Normal ECG No previous ECG available for comparison Electronically Signed On 01-21-24 12:52:27 CDT by Ryan Arteaga
== END 2024-01-18 18:48 | disposition home or self-care (01) ==
LOC: ER 10:53
DX: F55.8 Abuse of other non-psychoactive substances (principal); T43.625A Adverse effect of amphetamines, initial encounter; R53.1 Weakness
CPT/HCPCS: 36415; 51702; 70450; 70496; 70498; 71045; 80048; 80076; 80307; 81001; 83735; 83880; 84484; 85025; 85610; 86140; 93005; 96365; 96375; 99285; J1200; J1790; J2919; J7030; Q9967